=== PATIENT | female | born 1970 | race African-American/Black ===

== ENCOUNTER 2021-04-18 05:00 | Emergency (ER) | payer OTHER, MEDICAID ==
[~2021-04-18] VITALS: Ht 167.6 cm; Wt 121.0 kg
[~2021-04-18 05:00] MED LIST: RISPERDAL
[2021-04-18] MEDS ORDERED: RISPERIDONE 1MG TABLET PO SCH (09:00)
[2021-04-18 10:05] LABS: BASOPHILS % 0.5 % (0.0-2.0); EOSINOPHILS % 1.7 % (0.0-5.0); HEMATOCRIT. 43.6 % (36.0-48.0); HEMOGLOBIN. 14.3 g/dL (12.0-16.0); LYMPHOCYTES % 19.7 % (20.0-50.0); MEAN CORPUSCULAR HEMOGLOBIN 31.2 pg (28.0-32.0); MEAN PLATELET VOLUME 7.8 fl (7.4-10.4); MONOCYTES % 4.4 % (2.0-8.0); NEUTROPHILS % 73.7 % (40.0-76.0); PLATELET 361 x1000/uL (130-400); RED BLOOD CELL COUNT 4.59 mill/uL (4.2-5.4); RED CELL DISTRIBUTION WIDTH 16.5 % (11.6-14.6)
[2021-04-18 10:19] LABS: CHLORIDE 102 mEq/L (98-107)
[2021-04-18 10:23] LABS: ETHANOL BLOOD < 10 mg/dL
[2021-04-18 10:33] LABS: HCG SCREEN NEGATIVE
[2021-04-18 10:56] LABS: *COCAINE SCREEN URINE NEGATIVE (NEGATIVE); METHADONE URINE SCREEN NEGATIVE (NEGATIVE); OPIATES URINE SCREEN NEGATIVE (NEGATIVE)
[2021-04-18 10:57] LABS: *AMPHETAMINES SCREEN URINE NEGATIVE (NEGATIVE); *BARBITURATES SCREEN URINE NEGATIVE (NEGATIVE); *BENZODIAZEPINES SCREEN URINE NEGATIVE (NEGATIVE); CANNABINOID URINE SCREEN NEGATIVE (NEGATIVE); PHENCYCLIDINE URINE SCREEN NEGATIVE (NEGATIVE)
[2021-04-18 14:24] VITALS: BP 127/84
== END 2021-04-18 15:09 | disposition home or self-care (01) ==
LOC: ER 05:00
DX: F16.129 Hallucinogen abuse with intoxication, unspecified (principal); R45.851 Suicidal ideations; F20.9 Schizophrenia, unspecified; R00.0 Tachycardia, unspecified; Z20.822 Contact with and (suspected) exposure to COVID-19
CPT/HCPCS: 36415; 80048; 80076; 80305; 80307; 80320; 80329; 84703; 85025; 87426; 99283; G0480

== ENCOUNTER 2022-12-21 18:14 | Emergency (ER) | payer MEDICARE, MEDICAID ==
[~2022-12-21] VITALS: Ht 165.1 cm; Wt 75.0 kg
[2022-12-21] MEDS ORDERED: HALOPERIDOL LACTATE 5MG/ML VIAL IM ONE (21:00)
[2022-12-21] MEDS ORDERED: MIDAZOLAM HCL 2 MG/2 ML VIAL IM ONE (22:00)
[2022-12-21 22:03] LABS: BASOPHILS % 1.2 % (0.0-2.0); EOSINOPHILS % 4.7 % (0.0-5.0); HEMOGLOBIN. 11.7 g/dL (12.0-16.0); LYMPHOCYTES % 61.5 % (20.0-50.0); MEAN CORPUSCULAR HEMOGLOBIN 31.9 pg (28.0-32.0); MEAN CORPUSCULAR HGB CONC 34.5 g/dL (31.0-37.0); MEAN CORPUSCULAR VOLUME 92.4 fL (81.0-99.0); MEAN PLATELET VOLUME 7.7 fl (7.4-10.4); MONOCYTES % 5.8 % (2.0-8.0); NEUTROPHILS % 26.8 % (40.0-76.0); PLATELET 307 x1000/uL (130-400); RED BLOOD CELL COUNT 3.69 mill/uL (4.2-5.4); RED CELL DISTRIBUTION WIDTH 14.7 % (11.6-14.6); WHITE BLOOD COUNT 5.3 x1000/uL (4.5-11.0)
[2022-12-21 22:18] LABS: CHLORIDE 109 mEq/L (98-107); INDEX HEMOLYSI 1 (1-3); INDEX ICTERIC 1 (1-4); INDEX LIPEMIC 1 (1-3); POTASSIUM 3.9 mEq/L (3.5-5.1); SODIUM 140 mEq/L (136-145)
[2022-12-21 22:20] VITALS: O2SAT 98
[2022-12-21 22:25] LABS: ACETAMINOPHEN < 2 ug/mL (10-30); ALANINE AMINOTRANSFERASE 17 IU/L (13-61); ALBUMIN 3.1 g/dL (3.4-5.0); ASPARTATE AMINOTRANSFERASE 15 IU/L (15-37); BILIRUBIN TOTAL 0.3 mg/dL (0.1-1.0); CALCIUM 8.8 mg/dL (8.5-10.1); CARBON DIOXIDE 33 mEq/L (21-32); CREATININE 0.8 mg/dL (0.6-1.3); ETHANOL BLOOD < 10 mg/dL (-10); GLUCOSE 106 mg/dL (70-105); HCG SCREEN NEGATIVE; PROTEIN TOTAL 6.4 g/dL (6.0-8.3); UREA NITROGEN BLOOD 14 mg/dL (7-21)
[2022-12-22 00:17] LABS: CLARITY URINE CLEAR (CLEAR); COLOR URINE YELLOW (YELLOW); GLUCOSE URINE NEGATIVE (NEGATIVE); KETONES URINE NEGATIVE (NEGATIVE); LEUKOCYTE ESTERASE URINE NEGATIVE (NEGATIVE); NITRITE URINE NEGATIVE (NEGATIVE); OCCULT BLOOD URINE NEGATIVE (NEGATIVE); PROTEIN URINE NEGATIVE (NEGATIVE); SPECIFIC GRAVITY URINE 1.018 (1.005-1.030)
[2022-12-22 01:31] LABS: *AMPHETAMINES SCREEN URINE NEGATIVE (NEGATIVE); *BARBITURATES SCREEN URINE NEGATIVE (NEGATIVE); *BENZODIAZEPINES SCREEN URINE PRESUMTIVE POSITIVE (NEGATIVE); *COCAINE SCREEN URINE NEGATIVE (NEGATIVE); CANNABINOID URINE SCREEN NEGATIVE (NEGATIVE); ECSTASY MDMA SCREEN URINE NEGATIVE (NEGATIVE); METHADONE URINE SCREEN NEGATIVE (NEGATIVE); OPIATES URINE SCREEN NEGATIVE (NEGATIVE); PHENCYCLIDINE URINE SCREEN NEGATIVE (NEGATIVE)
[2022-12-22] MEDS ORDERED: LORAZEPAM 2MG/ML CPJ IM STA (09:54)
[2022-12-22] MEDS ORDERED: OLANZAPINE 10 MG/VIAL IM ONE (10:00)
[2022-12-22] MEDS: OLANZAPINE 5MG TABLET ODT PO SCH ×2 (10:15→17:00)
[2022-12-22 15:59] VITALS: BP 118/90; PULSE 94; RESP 17; TEMP 98.2
== END 2022-12-22 19:45 ==
LOC: ER 18:37
DX: R46.2 Strange and inexplicable behavior (principal); Z20.822 Contact with and (suspected) exposure to COVID-19; Z86.59 Personal history of other mental and behavioral disorders; Z98.890 Other specified postprocedural states
CPT/HCPCS: 80053; 80305; 81003; 80307; 80329; 80320; 84703; 85025; 36415; 96372 ×2; 99285; 87426; J1630; J2250; C9803; J3490; J2060; G0480

== ENCOUNTER 2023-04-27 22:14 | Emergency (ER) | payer MEDICARE, MEDICAID ==
[~2023-04-27] VITALS: Ht 172.7 cm; Wt 80.0 kg
[2023-04-27 22:30] VITALS: BP 110/60; PULSE 92; RESP 20; TEMP 97.2; O2SAT 98
== END 2023-04-27 23:27 | disposition home or self-care (01) ==
LOC: ER 22:14
DX: M79.662 Pain in left lower leg (principal)
CPT/HCPCS: 99283